=== PATIENT | female | born 1975 | race Caucasian/White ===

== ENCOUNTER 2019-06-29 05:46 | Emergency (ER) | payer MEDICAID ==
[2019-06-29] MEDS ORDERED: Lidocaine 2% 20 ML MDV INFILT ONE (05:47)
--- NOTE | 2019-06-29 06:48 | EDM.PDOC ---
ED HPI GENERAL MEDICAL PROBLEM - General Chief Complaint: Skin Complaint Stated Complaint: BOIL Time Seen by Provider: 06/29/19 05:50 Source of Information: Reports: Patient History Limitations: Reports: No Limitations - History of Present Illness INITIAL COMMENTS - FREE TEXT/NARRATIVE: Patient presented to the ED because of some boils on her left groin. It's tender ,denies having any fever or chills. left side groin Pain Score (Numeric/FACES): 9 - Related Data Allergies Allergy/AdvReac Type Severity Reaction Status Date / Time cephalexin Allergy Hives Verified 06/29/19 05:57 gentamicin [Gentamicin] Allergy Swollen Verified 06/29/19 05:57 Eyes morphine Allergy Nausea Verified 06/29/19 05:57 Home Meds: Home Meds diphenhydrAMINE [Benadryl] 50 mg PO Q6HR PRN #30 cap 04/06/15 [Rx] traMADol HCl [Tramadol HCl] 50 mg PO Q6H PRN #20 tablet 11/26/17 [Rx] Ibuprofen [Motrin] 800 mg PO TID PRN #30 tab 06/29/19 [Rx] Sulfamethoxazole/Trimethoprim [Bactrim Ds Tablet] 1 each PO BID #20 tablet 06/28 [Rx] Past Medical History - Past Health History Medical/Surgical History: Denies Medical/Surgical History Respiratory History: Reports: Pneumonia, Recurrent Other Neuro History: Recently had first rib removed from right side to help the tingling in her arm and hand. - Past Surgical History HEENT Surgical History: Reports: Other (See Below) Social & Family History - Family History Family Medical History: Noncontributory - Tobacco Use Smoking Status *Q: Current Every Day Smoker Years of Tobacco use: 30 Packs/Tins Daily: 1 - Caffeine Use Caffeine Use: Reports: Coffee ED ROS GENERAL - Review of Systems Review Of Systems: See Below Constitutional: Reports: No Symptoms HEENT: Reports: No Symptoms Respiratory: Reports: No Symptoms Cardiovascular: Reports: No Symptoms Endocrine: Reports: No Symptoms GI/Abdominal: Reports: No Symptoms : Reports: Other (boil-left groin) Musculoskeletal: Reports: No Symptoms Skin: Reports: No Symptoms Neurological: Reports: No Symptoms ED EXAM, SKIN/RASH Exam: See Below Exam Limited By: No Limitations General Appearance: Alert, No Apparent Distress Ears: Normal External Exam, Normal Canal Nose: Normal Inspection, Normal Mucosa Throat/Mouth: Normal Inspection, Normal Lips, Normal Teeth, Normal Gums Head: Atraumatic, Normocephalic Neck: Normal Inspection, Supple, Non-Tender Respiratory/Chest: No Respiratory Distress, Lungs Clear, Normal Breath Sounds, No Accessory Muscle Use Cardiovascular: Normal Peripheral Pulses, Regular Rate, Rhythm, No Edema, No Gallop GI/Abdominal: Normal Bowel Sounds, Soft, Non-Tender, No Organomegaly (Female) Exam: Other (there is a furuncle 3x2 cm that is tender. It's hard with small amount of puss at the middle. The other boil are hard without any pus.) Course - Vital Signs Text/Narrative:: procedure. The left groin was sterilized with iodine swab then infiltrated with 2cc of 2% lidocaine w/o epi and a small midline incision was made. small amount of pus came out and specimen for culture was obtained. patient tolerated the procedure well without any complication. Last Recorded V/S: Last Vital Signs Temp 36.7 C 06/29/19 07:03 Pulse 80 06/29/19 07:03 Resp 17 06/29/19 07:03 BP 124/72 06/29/19 07:03 Pulse Ox 100 06/29/19 07:03 - Orders/Labs/Meds Orders: Active Orders 24 hr Category Date Time Status CULTURE ROUTINE + SMEAR [RM] Routine Lab 06/29/19 07:10 Received Meds: Medications Discontinued Medications Generic Name Dose Route Start Last Admin Trade Name Freq PRN Reason Stop Dose Admin Acetaminophen 1,000 mg 06/29/19 06:50 06/29/19 06:54 Tylenol Extra Strength PO 06/29/19 06:51 1,000 mg ONETIME ONE Administration Ibuprofen 800 mg 06/29/19 06:50 06/29/19 06:54 Motrin PO 06/29/19 06:51 800 mg ONETIME ONE Administration Trimethoprim/Sulfamethoxazole 1 tab 06/29/19 06:50 06/29/19 06:54 Septra Ds PO 06/29/19 06:51 1 tab ONETIME ONE Administration Departure - Departure Time of Disposition: 18:45 Disposition: Home, Self-Care 01 Condition: Good Clinical Impression: Furuncle - Discharge Information Prescriptions: Ibuprofen [Motrin] 800 mg PO TID PRN #30 tab PRN Reason: Pain Sulfamethoxazole/Trimethoprim [Bactrim Ds Tablet] 1 each PO BID #20 tablet Instructions: Percutaneous Abscess Drain, Care After Referrals: Hai Bermeo MD [Primary Care Provider] - Forms: ED Department Discharge Additional Instructions: Ori read discharge instructions on boil take Bactrim DS 1 tablet twice daily for 10 days ibuprofen 800 mg with tylenol 1000 mg 3 times daily as needed for pain follow up if symptoms persist Sepsis Event Note - Evaluation Sepsis Screening Result: No Definite Risk - Focused Exam Vital Signs: Vital Signs Temp Pulse Resp BP Pulse Ox 06/29/19 07:03 36.7 C 80 17 124/72 100 06/29/19 05:46 36.9 C 98 18 121/76 100 Date Exam was Performed: 06/29/19 Time Exam was Performed: 12:55 - My Orders Last 24 Hours: My Active Orders 06/29/19 07:10 CULTURE ROUTINE + SMEAR [RM] Routine - Assessment/Plan Last 24 Hours: My Active Orders 06/29/19 07:10 CULTURE ROUTINE + SMEAR [RM] Routine
[2019-06-29] MEDS ORDERED: Acetaminophen 500 MG Tab PO ONE (06:50)
[2019-06-29] MEDS ORDERED: Ibuprofen 800 MG Tab PO ONE (06:50)
[2019-06-29] MEDS ORDERED: Sulfamethoxazole/Trimethoprim 800-160 MG Tab PO ONE (06:50)
[2019-06-29 07:08] VITALS: BP 124/72; PULSE 80
== END 2019-06-29 07:03 | disposition home or self-care (01) ==
LOC: FB.ED 05:46
DX: L02.224 Furuncle of groin (principal); F17.210 Nicotine dependence, cigarettes, uncomplicated; Z88.1 Allergy status to other antibiotic agents; Z88.5 Allergy status to narcotic agent
CPT/HCPCS: 10060; 87070; 87077; 87186; 87205; 99283; A9270; J2001